=== PATIENT | male | born 1960 ===

== ENCOUNTER → 2021-01-25 | Day surgery (SDC) | payer OTHER ==
[~2021-01-25] VITALS: Ht 182.9 cm; Wt 77.1 kg
[~2021-01-25] MED LIST: CLARITIN10 M2 PO
[2021-01-25 07:45] LABS: HCT 44.7 % (42.0-52.0); HGB 15.2 g/dl (13.2-18.0); MCH 32.8 pg (25.0-31.0); MCV 96.3 fL (78.0-100.0); MPV 8.1 fL (6.0-9.5); RBC 4.64 M/uL (4.70-6.00); RDW 11.7 % (11.5-14.0); WBC 7.9 K/uL (4.0-10.5)
[2021-01-25 08:20] LABS: ALBUMIN 3.9 g/dL (3.4-5.0); BILIRUBIN - TOTAL 0.2 mg/dL (0.2-1.0); BUN/CREAT RATIO (CALC) 7.4 RATIO; CREATININE 0.95 mg/dL (0.67-1.17); GLOBULIN (CALCULATION) 3.9 g/dL; POTASSIUM 4.4 mmol/L (3.5-5.1); TOTAL PROTEIN 7.8 g/dL (6.4-8.2)
== END | disposition home or self-care (01) ==
LOC: FAS 12-31 08:00
PROVIDERS: Surgery
DX: Z12.11 Encounter for screening for malignant neoplasm of colon (principal); K57.30 Diverticulosis of large intestine without perforation or abscess without bleeding
CPT/HCPCS: 36415; 80053; J1610; J2250; J2704; J7120